=== PATIENT | female | born 1940 | race Caucasian/White ===

== ENCOUNTER 2016-10-05 21:17 | Inpatient (IN) | payer MEDICARE, OTHER ==
[~2016-10-05] VITALS: Ht 144.8 cm; Wt 56.2 kg
[~2016-10-05 21:17] MED LIST: ASPI81TA2 PO; CARV3.122 PO; CLOP75TA2 PO; ESTR-7 PO; FOLI0.4T2 PO; LEVO25TA2 PO; VALS40TA4 PO
[2016-10-05 21:43] LABS: BASOPHILS % (AUTO) 0.5 % (0.0-2.0); EOSINOPHILS # (AUTO) 0.6 /CMM (0.0-0.7); EOSINOPHILS % (AUTO) 11.5 % (0.0-6.0); HEMATOCRIT 31 % (33-45); HEMOGLOBIN 9.9 g/dL (11.5-14.8); LYMPHOCYTES % (AUTO) 41.1 % (20.0-44.0); MEAN CORPUSCULAR HEMOGLOBIN 29 PG (26.0-33.0); MEAN CORPUSCULAR HGB CONC 33 g/dl (31.0-36.0); MEAN CORPUSCULAR VOLUME 88 fL (82-100); MONOCYTES # (AUTO) 0.7 /CMM (0.1-1.30); MONOCYTES % (AUTO) 13.2 % (2.0-12.0); NEUTROPHILS # (AUTO) 1.7 /CMM (1.8-8.9); NEUTROPHILS % (AUTO) 33.7 % (43.0-81.0); PLATELET COUNT (AUTO) 174 /CMM (150-450); RED BLOOD CELL COUNT(AUTO) 3.47 MIL/uL (4.0-5.2)
[2016-10-05 21:53] LABS: CALCIUM, SERUM 8.8 mg/dL (8.5-10.1); CARBON DIOXIDE 31 mmol/L (21-32); CHLORIDE 103 mmol/L (98-107); CREATININE 0.8 mg/dL (0.6-1.3); GLUCOSE 130 mg/dL (74-106); POTASSIUM 3.7 mmol/L (3.5-5.1); SODIUM SERUM 138 mmol/L (136-145); UREA NITROGEN, BLOOD 19 mg/dL (7-18)
[2016-10-05 22:01] LABS: TROPONIN I < 0.017 ng/mL (0.00-0.056)
[2016-10-05 22:06] LABS: ALANINE AMINOTRANSFERASE 11 U/L (12-78); ALBUMIN 3.4 g/dL (3.4-5.0); ALKALINE PHOSPHATASE 54 U/L (46-116); ASPARTATE AMINOTRANSFERASE 34 U/L (15-37); B-TYPE NATRIURETIC PEPTIDE 1237 PG/ML (0-125); BILIRUBIN,DIRECT 0.1 mg/dL (0.0-0.2); BILIRUBIN,TOTAL 0.3 mg/dL (0.2-1.0); TOTAL PROTEIN, SERUM 6.5 g/dL (6.4-8.2)
[2016-10-05 22:09] LABS: INR 0.97 (0.87-1.13); PROTHROMBIN TIME 10.1 SECS (9.5-12.7)
[2016-10-05] MEDS ORDERED: IV NS 0.9% 250 ML IV ONE (23:41)
[2016-10-05] MEDS ORDERED: IOHEXOL-350 100 ML VIAL IV ONE (23:41)
[2016-10-06] MEDS ORDERED: methylPREDNISolone SOD SUCC 125 MG/2ML VIAL IV ONE
[2016-10-06] MEDS ORDERED: HYDROMORPHONE 1 MG/1 ML DISP.SYRIN IV ONE
[2016-10-06] MEDS ORDERED: GABAPENTIN 100 MG CAPSULE PO ONE
[2016-10-06] MEDS ORDERED: IPRATROPIUM NEB FS 0.5 MG/2.5 ML AMPUL.NEB NEB ONE
[2016-10-06] MEDS ORDERED: ALBUTEROL FS 2.5 MG/3 ML VIAL.NEB CONTNEB ONE
[2016-10-06] MEDS ORDERED: ALBUTEROL FS 2.5 MG/3 ML VIAL.NEB ONE (00:17)
[2016-10-06] MEDS ORDERED: IPRATROPIUM NEB FS 0.5 MG/2.5 ML AMPUL.NEB ONE (00:17)
[2016-10-06] MEDS ORDERED: GABAPENTIN 100 MG CAPSULE ONE (00:18)
[2016-10-06] MEDS ORDERED: HYDROMORPHONE 1 MG/1 ML DISP.SYRIN ONE ×2 (00:18→06:14)
[2016-10-06] MEDS ORDERED: methylPREDNISolone SOD SUCC 125 MG/2ML VIAL ONE (00:19)
[2016-10-06 00:50] VITALS: BP 131/71
[2016-10-06] MEDS ORDERED: ONDANSETRON HCL/PF 4 MG/2 ML VIAL IVP PRN (02:00)
[2016-10-06] MEDS ORDERED: MAGNESIUM HYDROXIDE 30 ML UDC PO PRN (02:00)
[2016-10-06] MEDS ORDERED: ENOXAPARIN SODIUM 40 MG/0.4 ML DISP.SYRIN SQ SCH (02:00)
[2016-10-06] MEDS ORDERED: MAG HYDROX/AL HYDROX/SIMETH 30 ML UDC PO PRN (02:00)
[2016-10-06] MEDS ORDERED: ACETAMINOPHEN 325 MG TABLET PO PRN (02:00)
[2016-10-06] MEDS ORDERED: LEVO88TA2 PO (02:23)
[2016-10-06] MEDS ORDERED: ERGO50003 PO (02:23)
[2016-10-06] MEDS ORDERED: SERT50TA PO (02:23)
[2016-10-06] MEDS ORDERED: TRAM50TA2 PO (02:23)
[2016-10-06] MEDS ORDERED: CARB-93 PO (02:23)
[2016-10-06] MEDS ORDERED: SULF1TAB48 PO (02:23)
[2016-10-06] MEDS ORDERED: ALBU8.5H2 INH (02:23)
[2016-10-06] MEDS ORDERED: GABA600T2 PO (02:23)
[2016-10-06] MEDS ORDERED: ROSU20TA PO (02:23)
[2016-10-06] MEDS ORDERED: RANI150T12 PO (02:23)
[2016-10-06] MEDS ORDERED: HYDR2TAB35 PO (02:23)
[2016-10-06] MEDS ORDERED: LEFL20TA PO (02:23)
[2016-10-06] MEDS ORDERED: ENOXAPARIN SODIUM 60 MG/0.6 ML DISP.SYRIN SQ SCH ×3 (02:30→09:30)
[2016-10-06] MEDS ORDERED: ENOXAPARIN SODIUM 60 MG/0.6 ML DISP.SYRIN SQ ONE (03:06)
[2016-10-06] MEDS ORDERED: IV NS 0.9% 1,000 ML ONE (03:24)
[2016-10-06] MEDS ORDERED: IV SET PRIMARY PUMP SET 1 EA INFUS.SET MC ONE (03:24)
[2016-10-06] MEDS ORDERED: ALBUTEROL FS 2.5 MG/3 ML VIAL.NEB NEB PRN (03:30)
[2016-10-06] MEDS: IV NS 0.9% 1,000 ML IV PRN ×2 (03:35→18:07)
[2016-10-06] MEDS: HYDROMORPHONE 1 MG/1 ML DISP.SYRIN IV PRN ×3 (06:22→23:36)
[2016-10-06 07:12] LABS: ALBUMIN 3.3 g/dL (3.4-5.0); BILIRUBIN,DIRECT 0.1 mg/dL (0.0-0.2); BILIRUBIN,TOTAL 0.3 mg/dL (0.2-1.0); MAGNESIUM 1.9 mg/dL (1.8-2.4); PHOSPHORUS 3.5 mg/dL (2.5-4.9); TOTAL PROTEIN, SERUM 6.4 g/dL (6.4-8.2)
[2016-10-06 08:00] VITALS: BP 145/76
[2016-10-06] MEDS ORDERED: VALSARTAN 40 MG TABLET PO SCH (09:00)
[2016-10-06] MEDS ORDERED: ESTROGEN,CON/MPROGEST0.3-1.5MG 1 EACH TABLET PO SCH (09:00)
[2016-10-06] MEDS: FOLIC ACID 1 MG TABLET PO SCH (09:56)
[2016-10-06] MEDS: ASPIRIN 81 MG TAB.CHEW PO SCH (09:56)
[2016-10-06] MEDS: LEVOTHYROXINE SODIUM 88 MCG TABLET PO SCH (09:56)
[2016-10-06] MEDS: LEFLUNOMIDE 10 MG TABLET PO SCH (09:56)
[2016-10-06] MEDS: CLOPIDOGREL BISULFATE 75 MG TABLET PO SCH (09:56)
[2016-10-06] MEDS: PANTOPRAZOLE 40 MG TABLET.DR PO SCH (09:56)
[2016-10-06] MEDS: TRAMADOL HCL 50 MG TABLET PO SCH ×3 (09:57→20:04)
[2016-10-06] MEDS: CARVEDILOL 3.125 MG TABLET PO SCH ×3 (09:59→18:20)
[2016-10-06] MEDS: CARBIDOPA/LEVODOPA 25/100 MG 1 UDTAB PO SCH ×3 (10:02→18:09)
[2016-10-06] MEDS: ACETYLCYSTEINE 20% SOLN 800 MG/4 ML VIAL NEB SCH ×3 (11:43→22:54)
[2016-10-06] MEDS: IPRATROPIUM NEB FS 0.5 MG/2.5 ML AMPUL.NEB NEB PRN (11:44)
[2016-10-06 12:00] VITALS: BP 139/85
[2016-10-06] MEDS: Z GUARD REMEDY 2 OZ OINT TP SCH ×2 (12:49→17:00)
[2016-10-06] MEDS: ERGOCALCIFEROL (VITAMIN D 2) 50,000 UNIT CAPSULE PO SCH ×2 (14:00→18:09)
[2016-10-06 15:05] VITALS: BP 139/85
[2016-10-06 16:00] VITALS: BP 141/71
[2016-10-06] MEDS: Z GUARD REMEDY 2 OZ OINT TP PRN (18:10)
[2016-10-06] MEDS: SULFAMETH/TRIMETH 800/160 MG 1 UDTAB TABLET PO SCH (18:10)
[2016-10-06 20:00] VITALS: BP 120/75
[2016-10-06] MEDS: ATORVASTATIN 10 MG TABLET PO SCH (21:34)
[2016-10-06] MEDS: SERTRALINE HCL 50 MG TABLET PO SCH (21:34)
[2016-10-06] MEDS: GABAPENTIN 300 MG CAPSULE PO SCH (21:34)
[2016-10-06] MEDS: ENOXAPARIN SODIUM 40 MG/0.4 ML DISP.SYRIN SQ SCH (21:35)
[2016-10-06] MEDS: ALBUTEROL FS 2.5 MG/0.5 ML VIAL.NEB NEB PRN (22:54)
[2016-10-07] MEDS: HYDROMORPHONE 1 MG/1 ML DISP.SYRIN IV PRN ×3 (03:26→15:57)
[2016-10-07 04:52] VITALS: BP 104/60
[2016-10-07] MEDS: IV NS 0.9% 1,000 ML IV PRN (05:26)
[2016-10-07 07:16] LABS: EOSINOPHILS % (AUTO) 0.2 % (0.0-6.0); HEMATOCRIT 30 % (33-45); HEMOGLOBIN 9.4 g/dL (11.5-14.8); LYMPHOCYTES # (AUTO) 0.9 /CMM (0.8-4.8); LYMPHOCYTES % (AUTO) 16.2 % (20.0-44.0); MEAN CORPUSCULAR HEMOGLOBIN 28 PG (26.0-33.0); MEAN CORPUSCULAR HGB CONC 32 g/dl (31.0-36.0); MEAN CORPUSCULAR VOLUME 89 fL (82-100); MONOCYTES # (AUTO) 0.7 /CMM (0.1-1.30); MONOCYTES % (AUTO) 12.1 % (2.0-12.0); NEUTROPHILS # (AUTO) 4.2 /CMM (1.8-8.9); NEUTROPHILS % (AUTO) 71.5 % (43.0-81.0); PLATELET COUNT (AUTO) 181 /CMM (150-450); RDW COEFFICIENT OF VARIATION 16.9 (11.5-15.0); RED BLOOD CELL COUNT(AUTO) 3.34 MIL/uL (4.0-5.2); WHITE BLOOD COUNT (AUTO) 5.8 K/uL (4.3-11.0)
[2016-10-07] MEDS: ACETYLCYSTEINE 20% SOLN 800 MG/4 ML VIAL NEB SCH ×3 (07:36→23:09)
[2016-10-07] MEDS: IPRATROPIUM NEB FS 0.5 MG/2.5 ML AMPUL.NEB NEB PRN ×2 (07:36→14:35)
[2016-10-07] MEDS: ALBUTEROL FS 2.5 MG/0.5 ML VIAL.NEB NEB PRN ×3 (07:36→23:09)
[2016-10-07 07:46] LABS: CALCIUM, SERUM 7.8 mg/dL (8.5-10.1); CREATININE 0.6 mg/dL (0.6-1.3); MAGNESIUM 2.1 mg/dL (1.8-2.4); PHOSPHORUS 2.5 mg/dL (2.5-4.9); POTASSIUM 3.9 mmol/L (3.5-5.1)
[2016-10-07 08:00] VITALS: BP_SYST 138; BP_SYST 141; BP_DIAS 68; BP_DIAS 72
[2016-10-07] MEDS: LEFLUNOMIDE 10 MG TABLET PO SCH (08:52)
[2016-10-07] MEDS: CLOPIDOGREL BISULFATE 75 MG TABLET PO SCH (08:53)
[2016-10-07] MEDS: FOLIC ACID 1 MG TABLET PO SCH (08:53)
[2016-10-07] MEDS: SULFAMETH/TRIMETH 800/160 MG 1 UDTAB TABLET PO SCH (08:53)
[2016-10-07] MEDS: ASPIRIN 81 MG TAB.CHEW PO SCH (08:53)
[2016-10-07] MEDS: CARBIDOPA/LEVODOPA 25/100 MG 1 UDTAB PO SCH ×3 (08:53→16:39)
[2016-10-07] MEDS: LEVOTHYROXINE SODIUM 88 MCG TABLET PO SCH (08:53)
[2016-10-07] MEDS: VALSARTAN 40 MG TABLET PO SCH (08:55)
[2016-10-07 09:03] LABS: ANISOCYTOSIS 1+; BAND % (MANUAL) 1 % (0.0-5.0); LYMPHOCYTES % (MANUAL) 13 % (16-48); MONOCYTES % (MANUAL) 2 % (0-11.0); NEUTROPHILS % (MANUAL) 84 (42-76); PLATELET ESTIMATE ADEQUATE
[2016-10-07] MEDS: TRAMADOL HCL 50 MG TABLET PO SCH ×2 (09:06→19:31)
[2016-10-07] MEDS: PANTOPRAZOLE 40 MG TABLET.DR PO SCH (09:08)
[2016-10-07] MEDS: Z GUARD REMEDY 2 OZ OINT TP PRN ×2 (09:09→16:39)
[2016-10-07] MEDS: Z GUARD REMEDY 2 OZ OINT TP SCH ×2 (09:09→16:42)
[2016-10-07 16:00] VITALS: BP 126/58
[2016-10-07 20:00] VITALS: BP 122/60
[2016-10-07 20:56] VITALS: BP 122/60
[2016-10-07] MEDS: GABAPENTIN 300 MG CAPSULE PO SCH (20:58)
[2016-10-07] MEDS: ATORVASTATIN 10 MG TABLET PO SCH (21:03)
[2016-10-07] MEDS: SERTRALINE HCL 50 MG TABLET PO SCH (21:03)
[2016-10-07] MEDS: ENOXAPARIN SODIUM 40 MG/0.4 ML DISP.SYRIN SQ SCH (21:03)
[2016-10-08] MEDS: HYDROMORPHONE 1 MG/1 ML DISP.SYRIN IV PRN ×2 (01:09→10:12)
[2016-10-08 08:00] VITALS: BP 151/83
[2016-10-08] MEDS: ALBUTEROL FS 2.5 MG/0.5 ML VIAL.NEB NEB PRN ×2 (08:02→14:46)
[2016-10-08] MEDS: ACETYLCYSTEINE 20% SOLN 800 MG/4 ML VIAL NEB SCH ×2 (08:02→14:46)
[2016-10-08] MEDS: CLOPIDOGREL BISULFATE 75 MG TABLET PO SCH (08:30)
[2016-10-08] MEDS: CARBIDOPA/LEVODOPA 25/100 MG 1 UDTAB PO SCH ×3 (08:31→17:09)
[2016-10-08] MEDS: PANTOPRAZOLE 40 MG TABLET.DR PO SCH (08:31)
[2016-10-08] MEDS: SULFAMETH/TRIMETH 800/160 MG 1 UDTAB TABLET PO SCH (08:31)
[2016-10-08] MEDS: LEVOTHYROXINE SODIUM 88 MCG TABLET PO SCH (08:31)
[2016-10-08] MEDS: TRAMADOL HCL 50 MG TABLET PO SCH ×2 (08:31→20:12)
[2016-10-08] MEDS: FOLIC ACID 1 MG TABLET PO SCH (08:31)
[2016-10-08] MEDS: ASPIRIN 81 MG TAB.CHEW PO SCH (08:31)
[2016-10-08] MEDS: LEFLUNOMIDE 10 MG TABLET PO SCH (08:32)
[2016-10-08] MEDS: VALSARTAN 40 MG TABLET PO SCH (08:32)
[2016-10-08] MEDS: Z GUARD REMEDY 2 OZ OINT TP SCH ×2 (08:36→17:11)
[2016-10-08] MEDS ORDERED: FUROSEMIDE 20 MG/2 ML VIAL IV ONE (11:30)
[2016-10-08] MEDS ORDERED: POTASSIUM CHLORIDE 20 MEQ TAB.PRT.SR PO ONE (11:30)
[2016-10-08 16:24] VITALS: BP 101/59
[2016-10-08 20:00] VITALS: BP 128/51
[2016-10-08] MEDS: ENOXAPARIN SODIUM 40 MG/0.4 ML DISP.SYRIN SQ SCH (20:13)
[2016-10-08 22:00] VITALS: BP 128/51
[2016-10-08] MEDS: ATORVASTATIN 10 MG TABLET PO SCH (22:15)
[2016-10-08] MEDS: SERTRALINE HCL 50 MG TABLET PO SCH (22:15)
[2016-10-08] MEDS: GABAPENTIN 300 MG CAPSULE PO SCH (22:16)
[2016-10-09] MEDS: ACETYLCYSTEINE 20% SOLN 800 MG/4 ML VIAL NEB SCH ×3 (00:03→14:40)
[2016-10-09] MEDS: ALBUTEROL FS 2.5 MG/0.5 ML VIAL.NEB NEB PRN ×3 (00:03→14:40)
[2016-10-09] MEDS: HYDROMORPHONE 1 MG/1 ML DISP.SYRIN IV PRN ×2 (01:31→16:42)
[2016-10-09 08:00] VITALS: BP 138/66
[2016-10-09] MEDS: LEVOTHYROXINE SODIUM 88 MCG TABLET PO SCH (08:08)
[2016-10-09] MEDS: CARBIDOPA/LEVODOPA 25/100 MG 1 UDTAB PO SCH ×3 (08:08→16:34)
[2016-10-09] MEDS: PANTOPRAZOLE 40 MG TABLET.DR PO SCH (08:08)
[2016-10-09] MEDS: ASPIRIN 81 MG TAB.CHEW PO SCH (08:08)
[2016-10-09] MEDS: SULFAMETH/TRIMETH 800/160 MG 1 UDTAB TABLET PO SCH (08:08)
[2016-10-09] MEDS: FOLIC ACID 1 MG TABLET PO SCH (08:08)
[2016-10-09] MEDS: TRAMADOL HCL 50 MG TABLET PO SCH (08:09)
[2016-10-09] MEDS: CLOPIDOGREL BISULFATE 75 MG TABLET PO SCH (08:10)
[2016-10-09] MEDS: VALSARTAN 40 MG TABLET PO SCH (08:10)
[2016-10-09] MEDS: Z GUARD REMEDY 2 OZ OINT TP SCH ×2 (08:11→16:35)
[2016-10-09] MEDS: LEFLUNOMIDE 10 MG TABLET PO SCH (08:13)
[2016-10-09] MEDS ORDERED: predniSONE 20 MG TABLET PO SCH (11:30)
[2016-10-09] MEDS ORDERED: POTASSIUM CHLORIDE 20 MEQ TAB.PRT.SR PO ONE (12:00)
[2016-10-09] MEDS ORDERED: FUROSEMIDE 20 MG/2 ML VIAL IV ONE (12:00)
[2016-10-09] MEDS: FLUTICASONE/SALMETEROL DISKUS IH SCH ×2 (13:47→16:34)
[2016-10-09 16:00] VITALS: BP 98/60
[2016-10-09] MEDS ORDERED: FLUT1DIS3 INH (17:33)
[2016-10-09] MEDS ORDERED: PRED20TA PO (17:33)
[2016-10-13] MEDS ORDERED: ERGOCALCIFEROL (VITAMIN D 2) 50,000 UNIT CAPSULE PO SCH (09:00)
== END 2016-10-09 19:00 | disposition home or self-care (01) | DRG 291 ==
LOC: ER 21:18 → TELE 10-06 00:31 → MED 10-06 16:36
PROVIDERS: ADMIT Nurse Practitioner Acute Care; ATTEND Nurse Practitioner Acute Care
DX: I11.0 Hypertensive heart disease with heart failure (principal); I26.99 Other pulmonary embolism without acute cor pulmonale; T17.890A Other foreign object in other parts of respiratory tract causing asphyxiation, initial encounter; D68.59 Other primary thrombophilia; M87.9 Osteonecrosis, unspecified; J44.1 Chronic obstructive pulmonary disease with (acute) exacerbation; I50.33 Acute on chronic diastolic (congestive) heart failure; E78.5 Hyperlipidemia, unspecified; E03.9 Hypothyroidism, unspecified; I25.10 Atherosclerotic heart disease of native coronary artery without angina pectoris; M06.9 Rheumatoid arthritis, unspecified; X58.XXXA Exposure to other specified factors, initial encounter; Y92.009 Unspecified place in unspecified non-institutional (private) residence as the place of occurrence of the external cause; Z95.5 Presence of coronary angioplasty implant and graft; Z86.73 Personal history of transient ischemic attack (TIA), and cerebral infarction without residual deficits; Z96.653 Presence of artificial knee joint, bilateral; Z98.1 Arthrodesis status; Z96.643 Presence of artificial hip joint, bilateral; I34.0 Nonrheumatic mitral (valve) insufficiency; D63.8 Anemia in other chronic diseases classified elsewhere; Z74.01 Bed confinement status; G20 Parkinson's disease; T17.990A Other foreign object in respiratory tract, part unspecified in causing asphyxiation, initial encounter; J20.8 Acute bronchitis due to other specified organisms; S42.91XD Fracture of right shoulder girdle, part unspecified, subsequent encounter for fracture with routine healing; W19.XXXD Unspecified fall, subsequent encounter
CPT/HCPCS: 36415; 71010-TC; 80048-TC; 80061-TC; 80076-TC; 83735-TC; 83880; 84100-TC; 84484-TC; 85025-TC; 85378-TC; 85730-TC; 87081-TC; 93970-TC; 94668-TC; 94799-TC; 97001-TC; 97116-TC; 97530-TC; A4606; J1170; J1650; J1940; J2930; J7030; J7050; Q9967; Z7610

== ENCOUNTER 2017-01-31 08:55 | Emergency (ER) | payer MEDICARE, OTHER ==
[~2017-01-31] VITALS: Ht 144.8 cm; Wt 52.2 kg
[~2017-01-31 08:55] MED LIST changes: +ALBU8.5H2 INH; +CARB-93 PO; +ERGO50003 PO; +FLUT1DIS3 INH; +GABA600T2 PO; +HYDR2TAB35 PO; +LEFL20TA PO; +LEVO88TA2 PO; +PRED20TA PO; +RANI150T12 PO; +ROSU20TA PO; +SERT50TA PO; +SULF1TAB48 PO; +TRAM50TA2 PO
--- NOTE | 2017-01-31 09:21 | NUR ---
PT CAME IN FROM HOME FOR SOB SINCE LAST NIGHT. ALBUTEROL GIVEN ON THE FIELD, PT SATING AT 98% RA. PT AAOX3. VSS. SEEN BY FOR EVAL. SAFETY AND COMFORT MEASURE PROVIDED. JESSICA MONITOR.
[2017-01-31 09:24] LABS: BASOPHILS # (AUTO) 0.1 /CMM (0.0-0.2); BASOPHILS % (AUTO) 2.2 % (0.0-2.0); EOSINOPHILS # (AUTO) 0.3 /CMM (0.0-0.7); EOSINOPHILS % (AUTO) 8.1 % (0.0-6.0); HEMATOCRIT 34 % (33-45); HEMOGLOBIN 10.4 g/dL (11.5-14.8); LYMPHOCYTES # (AUTO) 1.3 /CMM (0.8-4.8); LYMPHOCYTES % (AUTO) 30.2 % (20.0-44.0); MEAN CORPUSCULAR HEMOGLOBIN 26 PG (26.0-33.0); MEAN CORPUSCULAR HGB CONC 30 g/dl (31.0-36.0); MEAN CORPUSCULAR VOLUME 87 fL (82-100); MONOCYTES # (AUTO) 0.6 /CMM (0.1-1.30); MONOCYTES % (AUTO) 13.3 % (2.0-12.0); NEUTROPHILS # (AUTO) 1.9 /CMM (1.8-8.9); NEUTROPHILS % (AUTO) 46.2 % (43.0-81.0); PLATELET COUNT (AUTO) 138 /CMM (150-450); RDW COEFFICIENT OF VARIATION 17.1 (11.5-15.0); RED BLOOD CELL COUNT(AUTO) 3.93 MIL/uL (4.0-5.2); WHITE BLOOD COUNT (AUTO) 4.2 K/uL (4.3-11.0)
[2017-01-31 09:34] LABS: CARBON DIOXIDE 27 mmol/L (21-32); CHLORIDE 104 mmol/L (98-107); GLUCOSE 144 mg/dL (74-106); POTASSIUM 3.5 mmol/L (3.5-5.1); SODIUM SERUM 141 mmol/L (136-145)
[2017-01-31 09:35] LABS: CALCIUM, SERUM 8.5 mg/dL (8.5-10.1); CREATININE 0.9 mg/dL (0.6-1.3); UREA NITROGEN, BLOOD 14 mg/dL (7-18)
[2017-01-31 09:42] LABS: TROPONIN I < 0.017 ng/mL (0.00-0.056)
[2017-01-31 09:45] LABS: INR 0.94 (0.87-1.13)
[2017-01-31] MEDS ORDERED: FERR-58 PO (09:46)
[2017-01-31] MEDS ORDERED: EVEN500C3 PO (09:46)
[2017-01-31] MEDS ORDERED: ACET-868 PO (09:46)
[2017-01-31] MEDS ORDERED: SENN-18 PO (09:46)
[2017-01-31] MEDS ORDERED: ASPI-991 PO (09:46)
[2017-01-31] MEDS ORDERED: DICL100G26 TP (09:46)
[2017-01-31] MEDS ORDERED: BISA5TAB10 PO (09:46)
[2017-01-31] MEDS ORDERED: FURO20TA4 PO (09:46)
[2017-01-31] MEDS ORDERED: GABA-534 PO (09:46)
[2017-01-31] MEDS ORDERED: CYAN100T3 PO (09:46)
[2017-01-31] MEDS ORDERED: POTA10TA15 PO (09:46)
[2017-01-31] MEDS ORDERED: BUSP5TAB3 PO (09:46)
[2017-01-31] MEDS ORDERED: GABA-532 PO (09:46)
[2017-01-31] MEDS ORDERED: ACID1TAB12 PO (09:46)
[2017-01-31 09:47] LABS: ALANINE AMINOTRANSFERASE 31 U/L (12-78); ALBUMIN 4.3 g/dL (3.4-5.0); ALKALINE PHOSPHATASE 61 U/L (46-116); ASPARTATE AMINOTRANSFERASE 42 U/L (15-37); B-TYPE NATRIURETIC PEPTIDE 2227 PG/ML (0-125); BILIRUBIN,DIRECT 0.2 mg/dL (0.0-0.2); BILIRUBIN,TOTAL 0.5 mg/dL (0.2-1.0); TOTAL PROTEIN, SERUM 7.2 g/dL (6.4-8.2)
--- NOTE | 2017-01-31 10:41 | NUR ---
PATIENT IS GOING TO 327-1 EMY RN FOR REPORT
[2017-01-31] MEDS ORDERED: DONE5TAB3 PO (10:48)
[2017-01-31 10:58] LABS: APPEARANCE,URINE Clear (CLEAR); BILIRUBIN,URINE Negative (NEGATIVE); BLOOD, URINE Negative Ery/uL (NEGATIVE); COLOR,URINE Yellow (YELLOW); KETONES,URINE Negative (NEGATIVE); LEUKOCYTE ESTERASE ,URINE Negative (NEGATIVE); NITRITE, URINE Negative (NEGATIVE); PROTEIN,URINE 100 mg/dl (NEGATIVE); UGLUCOSE Negative (NEGATIVE); UROBILINOGEN,URINE 0.2 EU/dL (0.2)
--- NOTE | 2017-01-31 11:06 | NUR ---
REPORT GIVEN TO EMY SOW FOR 327-1
[2017-01-31 11:21] LABS: BACTERIA,URINE Rare /HPF (None Seen); RBC,URINE NONE SEEN /HPF (0-2); SQUAMOUS EPITHELIAL CELL,UR Rare /HPF (None Seen); WBC,URINE 0-2 /HPF (0-3)
--- NOTE | 2017-01-31 12:05 | NUR ---
CALLED DR. INES PERRIN [phone] // DR. 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
--- NOTE | 2017-01-31 12:29 | NUR ---
FAXED FACESHEET TO [phone] [facility]
--- NOTE | 2017-01-31 13:04 | NUR ---
DR CAMPOS ON THE PHONE WITH [facility] DR APPIAH
--- NOTE | 2017-01-31 13:35 | NUR ---
REPORT GIVEN TO [place] NURSING MACHINE ASSISTANT OF [facility]. WAITING FOR TRANSFER CENTER TO CALL US FOR AMBULANCE ARRANGEMENTS AND NUMBER FOR NURSE REPORT.
--- NOTE | 2017-01-31 13:46 | NUR ---
TRANSFERRING TO [facility] ROOM #[id number] [place] [id number] CALL [phone] TO GIVE NURSE REPORT CALL MAURICIO BACK WITH ETA [phone] EXT [phone]
--- NOTE | 2017-01-31 13:49 | NUR ---
CALLED [facility] ETA 60MIN
--- NOTE | 2017-01-31 14:18 | NUR ---
REPORT GIVEN TO NORMA SOW FOR [facility].
[2017-01-31 15:15] VITALS: BP 127/67
--- NOTE | 2017-01-31 15:36 | NUR ---
NEW ETA IS 1615 PER CASEY @ [facility]
--- NOTE | 2017-01-31 16:38 | NUR ---
REPORT GIVEN TO ROBERT LU RN FOR [facility].
== END 2017-01-31 16:58 | disposition short-term general hospital (02) ==
LOC: ER 08:56 → UNDOADMIN 11:28 → TELE 11:28 → ER 16:58
DX: R06.02 Shortness of breath (principal); I10 Essential (primary) hypertension; E11.9 Type 2 diabetes mellitus without complications; E78.00 Pure hypercholesterolemia, unspecified; Z88.5 Allergy status to narcotic agent; Z88.1 Allergy status to other antibiotic agents
CPT/HCPCS: 36415; 71010-TC; 80048-TC; 80076-TC; 81000-TC; 83880; 84484-TC; 85025-TC; 85730-TC; 87081-TC; A4606; J1170; J1940; Z7610

== ENCOUNTER 2018-01-12 17:01 | Emergency (ER) | payer MEDICARE, OTHER ==
[~2018-01-12] VITALS: Ht 157.5 cm; Wt 53.1 kg
[~2018-01-12 17:01] MED LIST changes: +ACET-868 PO; +ACID1TAB12 PO; -ALBU8.5H2 INH; +ALBU8.5H8 INH; +ASPI-1152 PO; -ASPI81TA2 PO; +BISA5TAB10 PO; +BUSP5TAB3 PO; -CARV3.122 PO; +CLOP75TA15 PO; -CLOP75TA2 PO; +CYAN100T3 PO; +DICL100G26 TP; +DONE5TAB7 PO; +ERGO500014 PO; -ERGO50003 PO; -ESTR-7 PO; +EVEN500C4 PO; +FERR325T23 PO; +FURO20TA4 PO; +GABA-532 PO; +GABA-534 PO; -GABA600T2 PO; -LEVO88TA2 PO; +POTA10TA15 PO; -PRED20TA PO; -RANI150T12 PO; +RANI150T43 PO; +SENN-18 PO
--- NOTE | 2018-01-12 17:15 | NUR ---
LIDA MOHR FROM HOME, C/O SOB. SEEN BY FOR EVAL. VSS. SAFETY AND COMFORT MEASURES PROVIDED. WILL MONITOR.
--- NOTE | 2018-01-12 17:40 | NUR ---
CALLED RT FOR BREATHING TX.
[2018-01-12] MEDS ORDERED: ALBUTEROL FS 2.5 MG/3 ML VIAL.NEB ONE (17:58)
[2018-01-12] MEDS ORDERED: ALBUTEROL FS 2.5 MG/3 ML VIAL.NEB CONTNEB ONE (18:00)
[2018-01-12 18:14] LABS: BASOPHILS % (AUTO) 0.1 % (0.0-2.0); EOSINOPHILS % (AUTO) 2.1 % (0.0-6.0); HEMATOCRIT 38 % (33-45); HEMOGLOBIN 12.5 g/dL (11.5-14.8); LYMPHOCYTES # (AUTO) 1.1 /CMM (0.8-4.8); LYMPHOCYTES % (AUTO) 15.4 % (20.0-44.0); MEAN CORPUSCULAR HEMOGLOBIN 29 PG (26.0-33.0); MEAN CORPUSCULAR HGB CONC 33 g/dl (31.0-36.0); MEAN CORPUSCULAR VOLUME 87 fL (82-100); MONOCYTES # (AUTO) 0.8 /CMM (0.1-1.30); MONOCYTES % (AUTO) 11.3 % (2.0-12.0); NEUTROPHILS % (AUTO) 71.1 % (43.0-81.0); PLATELET COUNT (AUTO) 257 /CMM (150-450); RDW COEFFICIENT OF VARIATION 15.3 (11.5-15.0); RED BLOOD CELL COUNT(AUTO) 4.37 MIL/uL (4.0-5.2)
[2018-01-12 18:17] LABS: CALCIUM, SERUM 8.9 mg/dL (8.5-10.1); CARBON DIOXIDE 27 mmol/L (21-32); CHLORIDE 102 mmol/L (98-107); CREATININE 0.6 mg/dL (0.6-1.3); GLUCOSE 103 mg/dL (74-106); POTASSIUM 3.7 mmol/L (3.5-5.1); SODIUM SERUM 135 mmol/L (136-145); UREA NITROGEN, BLOOD 13 mg/dL (7-18)
[2018-01-12 18:24] LABS: TROPONIN I < 0.017 ng/mL (0.00-0.056)
[2018-01-12 18:29] LABS: ALANINE AMINOTRANSFERASE 21 U/L (12-78); ALBUMIN 2.5 g/dL (3.4-5.0); ALKALINE PHOSPHATASE 160 U/L (46-116); ASPARTATE AMINOTRANSFERASE 41 U/L (15-37); B-TYPE NATRIURETIC PEPTIDE 5629 PG/ML (0-125); BILIRUBIN,DIRECT 0.2 mg/dL (0.0-0.2); BILIRUBIN,TOTAL 0.3 mg/dL (0.2-1.0); TOTAL PROTEIN, SERUM 6.5 g/dL (6.4-8.2)
[2018-01-12] MEDS ORDERED: HYDROMORPHONE INJ 2 MG/ML DISP.SYRIN ONE ×2 (19:15→20:26)
--- NOTE | 2018-01-12 19:15 | NUR ---
REPORT REC'D FROM JUANJOSE GR FOR [facility].
--- NOTE | 2018-01-12 19:25 | NUR ---
PT APPEARS TO BE RESTING COMFORTABLY. WILL CONTINUE TO MONITOR THE PT.
[2018-01-12] MEDS ORDERED: HYDROMORPHONE 1 MG/1 ML DISP.SYRIN IV ONE (19:30)
[2018-01-12] MEDS ORDERED: HYDROMORPHONE INJ 0.5 MG/0.5 ML SYRINGE IV ONE (20:30)
--- NOTE | 2018-01-12 21:30 | NUR ---
DR. Green IS AT THE BEDSIDE SPEAKING TO THE PT.
--- NOTE | 2018-01-12 21:47 | NUR ---
PT STATED THAT SHE WANTS TO GO HOME. PT IS ON THE MONITOR AND CONTINUOUS PULSE OX.
--- NOTE | 2018-01-12 22:02 | NUR ---
IV removed. Catheter intact and site benign. Pressure and 4x4 applied to site. No bleeding noted. Patient discharged to home in stable condition. Written and verbal after care instructions given. Patient verbalizes understanding of instruction. PT'S FAMILY IS TAKING PT HOME. PT LEFT VIA WC. DR Green IS AWARE OF PT'S BP 89/54 AND IS OK WITH PT BEING D/C'D HOME.
[2018-01-12 22:03] VITALS: BP 89/54
== END 2018-01-12 22:04 | disposition home or self-care (01) ==
LOC: ER 17:03
DX: J45.901 Unspecified asthma with (acute) exacerbation (principal); J38.3 Other diseases of vocal cords; I10 Essential (primary) hypertension; F32.9 Major depressive disorder, single episode, unspecified; E78.5 Hyperlipidemia, unspecified; R41.0 Disorientation, unspecified; G20 Parkinson's disease; E03.9 Hypothyroidism, unspecified; I25.10 Atherosclerotic heart disease of native coronary artery without angina pectoris; G25.81 Restless legs syndrome; Z95.1 Presence of aortocoronary bypass graft; Z96.659 Presence of unspecified artificial knee joint; Z88.5 Allergy status to narcotic agent; Z88.1 Allergy status to other antibiotic agents; Z88.8 Allergy status to other drugs, medicaments and biological substances; Z79.82 Long term (current) use of aspirin; Z87.440 Personal history of urinary (tract) infections; M06.9 Rheumatoid arthritis, unspecified
CPT/HCPCS: 36415; 71045; 80048; 80076; 83880; 84484; 85025; 93005; 94644; 96374; 96376; 99285; J1170 ×2; A4606; Z7610

== ENCOUNTER 2018-08-18 16:51 | Inpatient (IN) | payer MEDICARE, OTHER ==
[~2018-08-18] VITALS: Ht 165.1 cm; Wt 49.9 kg
[~2018-08-18 16:51] MED LIST changes: -ROSU20TA PO; +ROSU20TA2 PO
--- NOTE | 2018-08-18 16:51 | NUR ---
BIB RA 78 FROM HOME,"NOT ACTING RIGHT"PER CAREGIVER,TWITCHING FOLLOWED BY SEIZURE 20 MINUTES TIMBER SIZER OPERATOR PER REPORT, TO ER BED 4, HOOKED TO MONITOR, APPLIED SEIZURE PRECAUTION, CHANGED TO DR PETRONA NAQVI AT BEDSIDE
[2018-08-18 17:25] LABS: BASOPHILS % (AUTO) 0.7 % (0.0-2.0); EOSINOPHILS % (AUTO) 4.2 % (0.0-6.0); HEMATOCRIT 36 % (33-45); HEMOGLOBIN 11.7 g/dL (11.5-14.8); LYMPHOCYTES # (AUTO) 1.3 /CMM (0.8-4.8); LYMPHOCYTES % (AUTO) 23.8 % (20.0-44.0); MEAN CORPUSCULAR HGB CONC 33 g/dl (31.0-36.0); MEAN CORPUSCULAR VOLUME 89 fL (82-100); MONOCYTES # (AUTO) 0.5 /CMM (0.1-1.30); MONOCYTES % (AUTO) 8.2 % (2.0-12.0); NEUTROPHILS # (AUTO) 3.5 /CMM (1.8-8.9); NEUTROPHILS % (AUTO) 63.1 % (43.0-81.0); PLATELET COUNT (AUTO) 185 /CMM (150-450); RED BLOOD CELL COUNT(AUTO) 4.06 MIL/uL (4.0-5.2); WHITE BLOOD COUNT (AUTO) 5.5 K/uL (4.3-11.0)
[2018-08-18 17:44] LABS: SERUM AMMONIA 9 umol/L (11-32)
[2018-08-18 17:49] LABS: CARBON DIOXIDE 31 mmol/L (21-32); CHLORIDE 102 mmol/L (98-107); CREATININE 0.9 mg/dL (0.6-1.3); GLUCOSE 117 mg/dL (74-106); POTASSIUM 5.6 mmol/L (3.5-5.1); SODIUM SERUM 138 mmol/L (136-145); UREA NITROGEN, BLOOD 15 mg/dL (7-18)
[2018-08-18 17:55] LABS: ALANINE AMINOTRANSFERASE 15 U/L (12-78); ALBUMIN 2.7 g/dL (3.4-5.0); ALKALINE PHOSPHATASE 109 U/L (46-116); ASPARTATE AMINOTRANSFERASE 83 U/L (15-37); BILIRUBIN,DIRECT 0.1 mg/dL (0.0-0.2); BILIRUBIN,TOTAL 0.3 mg/dL (0.2-1.0); THYROID STIMULATING HORMONE 18.622 uIU/mL (0.358-3.74); TOTAL PROTEIN, SERUM 6.4 g/dL (6.4-8.2)
[2018-08-18 17:58] LABS: APPEARANCE,URINE Clear (CLEAR); BILIRUBIN,URINE Negative (NEGATIVE); BLOOD, URINE Negative Ery/uL (NEGATIVE); COLOR,URINE Yellow (YELLOW); KETONES,URINE Trace (NEGATIVE); LEUKOCYTE ESTERASE ,URINE Small (NEGATIVE); NITRITE, URINE Positive (NEGATIVE); PROTEIN,URINE Trace mg/dl (NEGATIVE); UGLUCOSE Negative (NEGATIVE); UROBILINOGEN,URINE 0.2 EU/dL (0.2)
[2018-08-18 18:02] LABS: ACETAMINOPHEN 0 ug/ml (10-30); SALICYLATE 2.6 mg/dL (2.8-20.0)
--- NOTE | 2018-08-18 18:23 | NUR ---
CALLED NURSING SUP. FOR [facility] BED
[2018-08-18] MEDS ORDERED: IV NS 0.9% 500 ML BAG IV ONE (18:30)
[2018-08-18] MEDS ORDERED: CIPR500T5 PO (18:50)
[2018-08-18] MEDS ORDERED: CELE200C PO (18:50)
[2018-08-18] MEDS ORDERED: LEVO88TA5 PO (18:50)
[2018-08-18] MEDS ORDERED: GABA600T12 PO ×2 (18:50→19:09)
[2018-08-18] MEDS ORDERED: BUME2TAB3 PO (18:50)
[2018-08-18] MEDS ORDERED: LIDO30AD10 TP (18:50)
[2018-08-18] MEDS ORDERED: FLUT1DIS3 IH (18:50)
[2018-08-18] MEDS ORDERED: FERR325T6 PO (18:50)
[2018-08-18] MEDS ORDERED: DOCU100C36 PO (18:50)
[2018-08-18] MEDS ORDERED: TURM500C9 PO (19:01)
[2018-08-18] MEDS ORDERED: SERT100T PO (19:01)
[2018-08-18] MEDS ORDERED: LACT1CAP69 PO (19:01)
[2018-08-18] MEDS ORDERED: MINO100C2 PO (19:01)
[2018-08-18] MEDS ORDERED: POLY17PO4 PO (19:01)
[2018-08-18] MEDS ORDERED: POTA20TA83 PO (19:01)
[2018-08-18] MEDS ORDERED: SERT25TA5 PO (19:01)
[2018-08-18] MEDS ORDERED: CYAN10009 PO (19:03)
--- NOTE | 2018-08-18 19:06 | NUR ---
PT IN BED, ABLE TO PROVIDE HER NAME, DOESN'T KNOW WHERE SHE IS AND WHAT HAPPENED, HOOKED TO MONITOR, ON SEIZURE PRECAUTION, WILL CONTINUE TO MONITOR
--- NOTE | 2018-08-18 19:15 | NUR ---
[facility] 119-1
[2018-08-18] MEDS ORDERED: CEFTRIAXONE 1GM BAG (ER ONLY) 50 ML IV ONE (19:25)
--- NOTE | 2018-08-18 19:25 | NUR ---
REPORT GIVEN TO DONNA SOW OF [facility] FOR [facility]
[2018-08-18] MEDS ORDERED: CEFTRIAXONE 1GM BAG (ER ONLY) 1 GM/50 ML PIGGYBACK IV ONE (19:30)
--- NOTE | 2018-08-18 19:39 | NUR ---
DAUGHTER WOULD LIKE TO TRANSFER PT TO [facility] HILARIO PMD: DR INES PERRIN [phone] RUSS AWARE
--- NOTE | 2018-08-18 19:40 | NUR ---
REPORT GIVEN TO ED RN FOR ANNA
--- NOTE | 2018-08-18 19:53 | NUR ---
dwayne martin at bedside talking to pt and pt daughter.
[2018-08-18] MEDS ORDERED: SODIUM BICARBONATE SYR 50 MEQ/50 ML DISP.SYRIN ONE (19:55)
[2018-08-18] MEDS ORDERED: ACETAMINOPHEN 325 MG TABLET PO PRN (20:00)
[2018-08-18] MEDS ORDERED: SODIUM BICARBONATE SYR 50 MEQ/50 ML DISP.SYRIN IV ONE (20:00)
[2018-08-18] MEDS ORDERED: ONDANSETRON HCL/PF 4 MG/2 ML VIAL IVP PRN (20:00)
[2018-08-18] MEDS ORDERED: ZOLPIDEM TARTRATE 5 MG TABLET PO PRN (20:00)
[2018-08-18] MEDS ORDERED: Z GUARD REMEDY 2 OZ OINT TP PRN (20:00)
[2018-08-18] MEDS ORDERED: ACETAMINOPHEN ES 500 MG TABLET PO STA (21:07)
[2018-08-18 21:11] LABS: CALCIUM, SERUM 8.8 mg/dL (8.5-10.1); CARBON DIOXIDE 35 mmol/L (21-32); CHLORIDE 105 mmol/L (98-107); CREATININE 0.8 mg/dL (0.6-1.3); GLUCOSE 114 mg/dL (74-106); POTASSIUM 4.1 mmol/L (3.5-5.1); SODIUM SERUM 140 mmol/L (136-145); UREA NITROGEN, BLOOD 14 mg/dL (7-18)
[2018-08-18] MEDS ORDERED: ACETAMINOPHEN ES 500 MG TABLET ONE (21:11)
[2018-08-18 21:55] LABS: BACTERIA,URINE Few /HPF (None Seen); RBC,URINE 0-2 /HPF (0-2); SQUAMOUS EPITHELIAL CELL,UR Few /HPF (None Seen)
[2018-08-18] MEDS ORDERED: GABAPENTIN 300 MG CAPSULE PO SCH (22:00)
[2018-08-18] MEDS ORDERED: SERTRALINE HCL 50 MG TABLET PO SCH (22:00)
[2018-08-18] MEDS ORDERED: SENNOSIDES 8.6 MG TABLET PO SCH (22:00)
[2018-08-18] MEDS ORDERED: TRAMADOL HCL 50 MG TABLET PO PRN (23:30)
[2018-08-19] VITALS: BP 128/64
[2018-08-19] MEDS ORDERED: HYDROMORPHONE 1 MG/1 ML DISP.SYRIN IV PRN (00:30)
--- NOTE | 2018-08-19 01:00 | NUR ---
ELIEZER RN NOTES RECEIVED PT FROM DONNA SOW. NO RESPIRATORY DISTRESS, SR ON TELE MONITOR. DAUGHTER AT BEDSIDE, DIRECTOR OF CASINO AT BEDSIDE. ORDERED DILAUDID .5MG FOR PAIN REQUESTED BY PATIENT AND DAUGHTER. WILL MONITOR PT CLOSELY.
[2018-08-19 04:00] VITALS: BP 100/61
[2018-08-19 06:45] LABS: BASOPHILS % (AUTO) 0.6 % (0.0-2.0); EOSINOPHILS % (AUTO) 4.7 % (0.0-6.0); HEMATOCRIT 32 % (33-45); HEMOGLOBIN 10.6 g/dL (11.5-14.8); LYMPHOCYTES # (AUTO) 0.9 /CMM (0.8-4.8); MEAN CORPUSCULAR HGB CONC 33 g/dl (31.0-36.0); MEAN CORPUSCULAR VOLUME 89 fL (82-100); MONOCYTES # (AUTO) 0.5 /CMM (0.1-1.30); NEUTROPHILS # (AUTO) 3.3 /CMM (1.8-8.9); NEUTROPHILS % (AUTO) 66.7 % (43.0-81.0); PLATELET COUNT (AUTO) 180 /CMM (150-450); RED BLOOD CELL COUNT(AUTO) 3.63 MIL/uL (4.0-5.2)
--- NOTE | 2018-08-19 06:47 | NUR ---
TD RN NOTES NO ACUTE CHANGES NOTED DURING THE SHIFT. PROVIDED COMFORT AND SAFETY. WILL ENDORSE TO THE AM NURSE FOR CONTINUITY OF CARE.
[2018-08-19 06:52] LABS: CALCIUM, SERUM 8.7 mg/dL (8.5-10.1); CARBON DIOXIDE 32 mmol/L (21-32); CHLORIDE 104 mmol/L (98-107); CREATININE 0.8 mg/dL (0.6-1.3); GLUCOSE 87 mg/dL (74-106); MAGNESIUM 1.9 mg/dL (1.8-2.4); PHOSPHORUS 3.9 mg/dL (2.5-4.9); POTASSIUM 4.2 mmol/L (3.5-5.1); SODIUM SERUM 141 mmol/L (136-145); UREA NITROGEN, BLOOD 15 mg/dL (7-18)
[2018-08-19 07:18] LABS: CHOLESTEROL 201 mg/dL (<200); HDL CHOLESTEROL 39 mg/dL (40-60); LDL 105 mg/dL (0-99); TRIGLYCERIDES 260 mg/dL (30-150)
--- NOTE | 2018-08-19 07:25 | NUR ---
RN [facility] OPENING NOTES RECEIVED REPORT FROM STORY ANALYST RN. PT IS ASLEEP IN BED. APPEARS TO BE IN NO PAIN AND NO SIGNS OF RESPIRATORY DISTRESS OBSERVED. BED IS LOCKED AND IN LOWEST POSITION AND CALL LIGHT WITHIN REACH. IV IN R AC IS SL. WILL CONTINUE TO MONITOR.
[2018-08-19] MEDS ORDERED: LEVOTHYROXINE SODIUM 88 MCG TABLET PO SCH (07:30)
[2018-08-19 08:00] VITALS: BP 116/72
[2018-08-19] MEDS: CARBIDOPA/LEVODOPA 25/100 MG 1 UDTAB PO SCH ×2 (08:24→17:25)
[2018-08-19] MEDS: FERROUS SULFATE (325 MG) 325 MG/TAB TABLET PO SCH ×2 (08:25→17:25)
[2018-08-19] MEDS ORDERED: FLUTICASONE/VILANTEROL 1 EACH BLST.W.DEV IH SCH (09:00)
[2018-08-19] MEDS ORDERED: ASPIRIN EC 81 MG TABLET.DR PO SCH (09:00)
[2018-08-19] MEDS ORDERED: CELECOXIB 100 MG CAPSULE PO SCH (09:00)
[2018-08-19] MEDS ORDERED: BUMETANIDE (1 MG) 1 MG TABLET PO SCH (09:00)
[2018-08-19] MEDS ORDERED: DOCUSATE SODIUM 100 MG CAPSULE PO SCH (09:00)
[2018-08-19] MEDS ORDERED: SERTRALINE HCL 25 MG TABLET PO SCH (09:00)
[2018-08-19] MEDS ORDERED: CYANOCOBALAMIN 500 MCG TABLET PO SCH (09:00)
[2018-08-19] MEDS ORDERED: FAMOTIDINE (20 MG) 20 MG TABLET PO SCH (09:00)
--- NOTE | 2018-08-19 11:35 | NUR ---
RN NOTES GET GUARDADO CAME BY AND REQUESTED THE MOST RECENT MEDICAL ADMISSION HX FROM [facility].
[2018-08-19 12:00] VITALS: BP 113/71
--- NOTE | 2018-08-19 12:42 | NUR ---
RN NOTE: CALLED AND SPOKE WITH ABBE (DAUGHTER) AND MADE HER AWARE GET CANDELARIO'S ORDER TO OBTAIN THE RECENT MEDICAL RECORDS OF THE PATIENT FROM [facility]. PER ABBE, SHE DOES NOT WANT TO GIVE AUTHORIZATION FOR THE RELEASE OF HER MOTHER'S MEDICAL RECORDS BECAUSE SHE STILL WANTED THE PATIENT TO BE TRANSFERRED TO [facility] FOR CONTINUITY OF THE PATIENT'S CARE. GET CANDELARIO NP WAS MADE AWARE.
[2018-08-19] MEDS ORDERED: CEFEPIME 2 GM in IV D5W 100 ML IV SCH (13:00)
[2018-08-19 16:00] VITALS: BP 94/48
--- NOTE | 2018-08-19 18:01 | NUR ---
BUSINESS ETHICS PROFESSOR NOTES REPORT GIVEN TO JUANJOSE LEONARD AT [facility] AT 1620. REPORT GIVEN TO EMS PERSONNEL AT 1730. PT SHOWS NO SIGNS OF RESPIRATORY DISTRESS OR PAIN. PT IS STABLE AT TIME OF TRANSFER. PER JUANJOSE LEONARD IV IN RIGHT AC WAS NOT DC'ED. PT WAS TAKEND BY EMS AT 1800.
[2018-08-19] MEDS ORDERED: CEFTRIAXONE 1 G in IV D5W 50 ML IV SCH (19:00)
== END 2018-08-19 18:28 | disposition short-term general hospital (02) | DRG 689 ==
LOC: ER 16:51 → TELE1 19:23 → TELE-TD 20:23
PROVIDERS: ADMIT Nurse Practitioner Acute Care; ATTEND Nurse Practitioner Acute Care
DX: N39.0 Urinary tract infection, site not specified (principal); R53.2 Functional quadriplegia; G92 Toxic encephalopathy; E44.0 Moderate protein-calorie malnutrition; D68.59 Other primary thrombophilia; I50.32 Chronic diastolic (congestive) heart failure; M86.671 Other chronic osteomyelitis, right ankle and foot; Z68.1 Body mass index [BMI] 19.9 or less, adult; I25.10 Atherosclerotic heart disease of native coronary artery without angina pectoris; E03.9 Hypothyroidism, unspecified; E78.5 Hyperlipidemia, unspecified; E87.5 Hyperkalemia; G47.00 Insomnia, unspecified; K21.9 Gastro-esophageal reflux disease without esophagitis; K59.09 Other constipation; Z86.73 Personal history of transient ischemic attack (TIA), and cerebral infarction without residual deficits; Z95.5 Presence of coronary angioplasty implant and graft; E88.09 Other disorders of plasma-protein metabolism, not elsewhere classified; Z66 Do not resuscitate; M06.9 Rheumatoid arthritis, unspecified; I11.0 Hypertensive heart disease with heart failure; G20 Parkinson's disease; M81.0 Age-related osteoporosis without current pathological fracture; E11.69 Type 2 diabetes mellitus with other specified complication; L89.621 Pressure ulcer of left heel, stage 1; L89.611 Pressure ulcer of right heel, stage 1; Z79.82 Long term (current) use of aspirin; G25.81 Restless legs syndrome
CPT/HCPCS: 36415; 70450-TC; 71045-TC; 80048-TC; 80061-TC; 80076-TC; 80305; 81000-TC; 82140-TC; 83605-TC; 83735-TC; 84100-TC; 84439-TC; 84443-TC; 84484-TC; 85025-TC; 85730-TC; 87040-TC; 87081-TC; 87086-TC; A6402; G0378; G0480; J0692; J0696; J1170; J3490; J7040; J7050; J7060